=== PATIENT | female | born 1955 | race Native Hawaiian/Other Pacific Islander ===

== ENCOUNTER 2018-02-10 13:46 | Outpatient (CLI) | payer BC | END 2018-02-10 20:27 | disposition home or self-care (01) | LOC: RAD 13:46 | DX: Z13.820 Encounter for screening for osteoporosis (principal); M85.88 Other specified disorders of bone density and structure, other site ==

== ENCOUNTER 2018-10-23 14:50 | Outpatient (CLI) | payer BC | END 2018-10-23 20:51 | disposition home or self-care (01) | LOC: CT 14:50 | DX: J32.9 Chronic sinusitis, unspecified (principal) ==

== ENCOUNTER 2019-01-02 12:30 | Outpatient (CLI) | payer BC | END 2019-01-02 19:36 | disposition home or self-care (01) | LOC: INF 12:30 | DX: E86.0 Dehydration (principal) | CPT/HCPCS: 96360; 96361 ==

== ENCOUNTER 2019-01-02 20:47 | Outpatient (CLI) | payer BC | END 2019-01-02 23:14 | disposition home or self-care (01) | LOC: RAD 20:47 | DX: J20.9 Acute bronchitis, unspecified (principal) ==

== ENCOUNTER 2019-09-05 21:45 | Emergency (ER) | payer BC ==
[~2019-09-05] VITALS: Ht 154.9 cm; Wt 52.2 kg
[2019-09-05 22:23] LABS: PLATELET COUNT 297 K/uL (152-353)
[2019-09-05 22:30] LABS: POTASSIUM 3.4 mmol/L (3.6-5.2)
[2019-09-05 22:45] LABS: PARTIAL THROMBOPLASTIN TIME 24.3 SECONDS (24.5-33.6)
[2019-09-06 01:55] VITALS: BP 109/44; TEMP 97.7
== END 2019-09-06 01:55 | disposition home or self-care (01) ==
LOC: ED 21:45
PROVIDERS: Hospitalist
DX: K82.9 Disease of gallbladder, unspecified (principal)
CPT/HCPCS: 36415; 80053; 81000; 82150; 83690; 85027; 85610; 85730; 96360; 96374; 96376; 99284; J1885; J2405; Q9963

== ENCOUNTER 2021-11-15 12:48 | Outpatient (CLI) | payer BC, OTHER ==
[~2021-11-15] VITALS: Ht 154.9 cm; Wt 52.2 kg
== END 2021-11-15 19:12 | disposition home or self-care (01) ==
LOC: INF 12:48
PROVIDERS: ATTEND Family Medicine
DX: U07.1 COVID-19 (principal); Z23 Encounter for immunization
CPT/HCPCS: 96365; M0244

== ENCOUNTER 2022-03-31 00:16 | Emergency (ER) | payer BC ==
[~2022-03-31] VITALS: Ht 154.9 cm; Wt 50.8 kg
[2022-03-31 03:37] VITALS: BP 136/72; TEMP 98.1
== END 2022-03-31 03:34 | disposition home or self-care (01) ==
LOC: ED 00:16
DX: S00.83XA Contusion of other part of head, initial encounter (principal); S81.812A Laceration without foreign body, left lower leg, initial encounter; Y04.2XXA Assault by strike against or bumped into by another person, initial encounter; Y92.89 Other specified places as the place of occurrence of the external cause
CPT/HCPCS: 99282

== ENCOUNTER 2022-11-06 12:40 | Outpatient (CLI) | payer BC, OTHER | END 2022-11-06 19:35 | disposition home or self-care (01) | LOC: CT 12:40 → LABW 12:40 → CT 13:00 | PROVIDERS: ATTEND Nurse Practitioner Family | DX: R10.32 Left lower quadrant pain (principal) | CPT/HCPCS: 36415; 82565; 84520; Q9963 ==